=== PATIENT | male | born 1965 | race Caucasian/White ===

== ENCOUNTER 2023-11-18 10:26 | Outpatient (AMB) | payer OTHER, SELFPAY ==
--- NOTE | 2023-11-18 10:28 | AM.OFFWIN_ITS ---
Intake Vital Signs 11/18/23 10:32 11/18/23 10:35 Height 5 ft 6 in Weight 201 lb 4 oz BMI 32.5 BP 148/86 H 138/82 Blood Pressure Location Rt brachial Rt brachial Position Sitting Sitting Respiration 18 Pulse 102 H Pulse Source Pulse Oximeter Temp 88.4 F L Temp Source Oral Pulse Oximetry (%) 99 Oxygen Delivery Method Room Air Intake Visit Reasons: bronchitis, lower back pain Intake Note: Pins and needle feeling in chest, cough. Hx of bronchitis . Covid at home test negative this morning. Patient Tobacco Use Status: Never used Tobacco [employer] Required: No Allergies penicillin V Allergy (Unknown, Verified 11/18/23 11:19) Unknown Medication List - Last Reconciled 11/18/23 by Camila Jansen, [facility]- amlodipine 10 mg PO DAILY hydrochlorothiazide 25 mg PO DAILY lisinopril 5 mg PO DAILY testosterone cypionate 250 mg IM Q2W Do you need a note to return to daycare/school/sports/work: Yes HPI HPI Comments History of Present Illness Details Here today w/ cough and back pain. Started to feel sick 2 days ago. reports has bronchitis has burning in his chest + runny nose + sore throat Denies fever, chills, ear pain Has tried OTC meds w/o relief In addition tweaked lower back from coughing. Using OTC NSAID w/o relief Denies red flag signs of back pain PFSH Social History Patient Tobacco Use Status: Never used Tobacco Review of Systems Const All systems reviewed & are unremarkable except as noted in HPI and below Physical Exam Vital Signs: Last Vital Signs Temp 88.4 F L 11/18/23 10:32 Pulse 102 H 11/18/23 10:32 Resp 18 11/18/23 10:32 BP 138/82 11/18/23 10:35 Pulse Ox 99 11/18/23 10:32 Oxygen Delivery Method Room Air 11/18/23 10:32 BMI result Body Mass Index 32.5 Const Other: Awake alert NAD Sclera and conjunctiva clear bilat TM intact mild injection bilat Nares with large amounts of clear discharge MMM, pharynx WNL RRR LS CTAB, cough noted during exam Pain in the right lower back paraspinal otherwise neurovascularly intact Assessment & Plan Assessment & Plan (1) Lower respiratory infection (e.g., bronchitis, pneumonia, pneumonitis, pulmonitis): Code(s): J22 - Unspecified acute lower respiratory infection Plan: . (2) Low back strain: Code(s): S39.012A - Strain of muscle, fascia and tendon of lower back, initial encounter Qualifiers: Encounter type: initial encounter Qualified Code(s): S39.012A - Strain of muscle, fascia and tendon of lower back, initial encounter Plan .. Medications: New meloxicam 15 mg PO DAILY 14 tabs 0RF cyclobenzaprine 10 mg PO Q8H 5 days PRN 15 tabs 0RF muscle spasm benzonatate 100 mg PO TID 10 days PRN 30 caps 1RF cough albuterol sulfate 90 mcg/actuation 2 puffs inhalation Q4-6H 30 days PRN 8.5 grams 0RF shortness of breath or wheezing azithromycin For 250 mg dose pack: take 500 mg today (day 1), then 250 mg for 4 days (days 2-5) PO 5 days 6 tabs 0RF Patient Instructions: Take all medications as directed. If you have breakthrough back pain please remember no [id number] NSAIDs while using meloxicam. Okay to take Tylenol. Return to office if you have worsening or no improvement of your symptoms. Coding Level of Care Code Est Pt Level 4 (16100) Diagnoses Lower respiratory infection (e.g., bronchitis, pneumonia, pneumonitis, pulmonitis) J22 Strain of lumbar region, initial encounter S39.012A Encounter type: initial encounter
[2023-11-18 10:32] VITALS: BP 148/86; PULSE 102; RESP 18; TEMP 31.3; O2SAT 99; BMI 32.5
[2023-11-18 10:35] VITALS: BP 138/82
== END 2023-11-18 11:15 | disposition home or self-care (01) ==
PROVIDERS: Visit Provider Nurse Practitioner Family
DX: J22 Unspecified acute lower respiratory infection (principal); S39.012A Strain of muscle, fascia and tendon of lower back, initial encounter
CPT/HCPCS: 99214